=== PATIENT | female | born 1975 | race Two or more races ===

== ENCOUNTER 2019-03-25 09:24 | Emergency (ER) | payer MEDICAID ==
[~2019-03-25] VITALS: Ht 154.9 cm; Wt 49.0 kg
[2019-03-25] MEDS ORDERED: AMOXICILLIN TRIHYDRATE 250 MG CAPSULE ONE (10:11)
[2019-03-25] MEDS ORDERED: oxyCODONE/APAP (5/325 MG) 1 UDTAB TABLET ONE (10:11)
--- NOTE | 2019-03-25 10:15 | NUR ---
PT REC'D TO ER C/O RT FACIAL PAIN 3 DAYS AGO CHIPPED TOOTH SWOLLEN PAIN 5/10 MEDS GIVEN PER MD ORDER VSS AWAITING EVALUATION BY ER PROVIDER.
[2019-03-25] MEDS ORDERED: AMOXICILLIN TRIHYDRATE 250 MG CAPSULE PO ONE (10:30)
[2019-03-25] MEDS ORDERED: oxyCODONE/APAP (5/325 MG) 1 UDTAB TABLET PO ONE (10:30)
--- NOTE | 2019-03-25 10:36 | NUR ---
MEDS GIVEN PER MD ORDER
[2019-03-25 10:38] VITALS: BP 122/64
== END 2019-03-25 10:39 | disposition home or self-care (01) ==
LOC: ER 09:26
DX: K02.9 Dental caries, unspecified (principal); K04.7 Periapical abscess without sinus

== ENCOUNTER 2019-03-27 17:28 | Emergency (ER) | payer MEDICAID ==
[~2019-03-27] VITALS: Ht 154.9 cm; Wt 49.0 kg
--- NOTE | 2019-03-27 17:37 | NUR ---
PT AAOX4. C/O TOOTH PAIN, TAKING ANTIBIOTIC FOR TOOTH ABSCESS. PLACED ON MONITOR AND PULSE OX. AWAITING MD FOR EVAL.
[2019-03-27] MEDS ORDERED: KETOROLAC TROMETHAMINE INJ 30 MG/ML VIAL ONE (18:05)
[2019-03-27] MEDS ORDERED: oxyCODONE/APAP (5/325 MG) 1 UDTAB TABLET ONE (18:06)
[2019-03-27 18:24] VITALS: BP 124/72
--- NOTE | 2019-03-27 18:24 | NUR ---
Patient discharged to home in stable condition. Written and verbal after care instructions given. Patient verbalizes understanding of instruction and RX. PT ambulatory with a steady gait
[2019-03-27] MEDS ORDERED: oxyCODONE/APAP (5/325 MG) 1 UDTAB TABLET PO ONE (18:30)
[2019-03-27] MEDS ORDERED: KETOROLAC TROMETHAMINE INJ 60 MG/2 ML VIAL IM ONE (18:30)
== END 2019-03-27 18:26 | disposition home or self-care (01) ==
LOC: ER 17:28
DX: K04.7 Periapical abscess without sinus (principal)
CPT/HCPCS: 96372; 99283; J1885